=== PATIENT | female | born 1985 | race Caucasian/White ===

== ENCOUNTER → 2018-07-20 13:00 | Emergency (ER) | payer OTHER ==
[~2018-07-20 13:00] MED LIST: Iohexol 300* (CONTRAST) 10 ML SDV IV ONE
--- NOTE | 2018-07-20 13:38 | ED ---
Abdominal Pain/Female - HPI Summary HPI Summary: Patient is a 33 y/o F presenting to ED with complaints of periumbilical abdominal pain onsetting two days ago. She states that pain has been constant, notes that she has Hx of gallstones over eight years ago. Gallbladder is still present. She states that the present pain is similar to her previous gallstones but less intense. Pain is described as cramping. She denies N/V and constipation but notes an episode of diarrhea yesterday. LNMP was last week. No PMHx otherwise reported. PSHx of elbow surgery. FMHx of HTN, diabetes is denied. She denies smoking cigarettes, alcohol and substance usage. In room, pain is rated 7/10, she states that she does not need medications for pain. Nothing is noted to aggravate/alleviate Sx. Home medications and allergies are reviewed. - History of Current Complaint Chief Complaint: EDAbdPain Stated Complaint: ABD PAIN COMING FROM OFFICE Time Seen by Provider: 07/20/18 13:18 Hx Obtained From: Patient Onset/Duration: Lasting Days - onset two days ago, Still Present Timing: Days - onset two days ago Severity Currently: Severe - 7/10 Pain Intensity: 7 Pain Scale Used: 0-10 Numeric - 7/10 Location: Umbilical Character: Cramping Aggravating Factor(s): Nothing Alleviating Factor(s): Nothing Associated Signs and Symptoms: Positive: Diarrhea. Negative: Fever - on vitals , temp is 98.2 F, Constipation, Nausea, Vomiting Allergies/Adverse Reactions: Allergies Allergy/AdvReac Type Severity Reaction Status Date / Time No Known Allergies Allergy Verified 07/20/18 13:06 Home Medications: Home Medications Fexofenadine/Pseudoephedrine [Laila-D 24 Hour Tablet] 1 each PO DAILY [History Confirmed 07/20/18] Norgestimate-Ethinyl Estradiol [Sprintec 28 0.25-35 mg-Mcg] 1 tab PO DAILY 07/20 [History Confirmed 07/20/18] PMH/Surg Hx/FS Hx/Imm Hx GI History: Reports: Hx Gall Bladder Disease - gallstones Sensory History: Denies: Hx Legally Blind, Hx Deafness Opthamlomology History: Denies: Hx Legally Blind EENT History: Denies: Hx Deafness Infectious Disease History: No Infectious Disease History: Denies: Traveled Outside the [place] in Last 30 Days - Family History Known Family History: Negative: Hypertension, Diabetes - Social History Alcohol Use: None Substance Use Type: Reports: None Smoking Status (MU): Never Smoked Tobacco Review of Systems Negative: Fever - on vitals, temp is 98.2 F Gastrointestinal: Other - NEGATIVE - CONSTIPATION Positive: Abdominal Pain, Diarrhea. Negative: Vomiting, Nausea All Other Systems Reviewed And Are Negative: Yes Physical Exam - Summary Physical Exam Summary: VITAL SIGNS: Reviewed. GENERAL: Patient is a well-developed and nourished female who is lying comfortable in the stretcher. Patient is not in any acute respiratory distress. HEAD AND FACE: No signs of trauma. No ecchymosis, hematomas or skull depressions. No sinus tenderness. EYES: PERRLA, EOMI x 2, No injected conjunctiva, no nystagmus. EARS: Hearing grossly intact. Ear canals and tympanic membranes are within normal limits. MOUTH: Oropharynx within normal limits. NECK: Supple, trachea is midline, no adenopathy, no JVD, no carotid bruit, no c- spine tenderness, neck with full ROM. CHEST: Symmetric, no tenderness at palpation LUNGS: Clear to auscultation bilaterally. No wheezing or crackles. CVS: Regular rate and rhythm, S1 and S2 present, no murmurs or gallops appreciated. ABDOMEN: Soft, RUQ tenderness. No signs of distention. No rebound no guarding, and no masses palpated. Bowel sounds are normal. EXTREMITIES: FROM in all major joints, no edema, no cyanosis or clubbing. NEURO: Alert and oriented x 3. No acute neurological deficits. Speech is normal and follows commands. SKIN: Dry and warm Triage Information Reviewed: Yes Vital Signs On Initial Exam: Initial Vitals Temp Pulse Resp BP Pulse Ox 98.2 F 55 15 144/97 100 07/20/18 13:05 07/20/18 13:05 07/20/18 13:05 07/20/18 13:05 07/20/18 13:05 Vital Signs Reviewed: Yes Diagnostics - Vital Signs Vital Signs Temp Pulse Resp BP Pulse Ox 07/20/18 13:05 98.2 F 55 15 144/97 100 - Laboratory Result Diagrams: 07/20/18 14:13 07/20/18 14:13 Lab Statement: Any lab studies that have been ordered have been reviewed, and results considered in the medical decision making process. - CT ABD/PEL CT CT Interpretation Completed By: Radiologist Summary of CT Findings: IMPRESSION: 1. HEPATOMEGALY WITH FATTY INFILTRATION OF THE LIVER. 2. SMALL AMOUNT OF FLUID WITHIN THE PELVIC CUL-DE-SAC. THIS MAY BE PHYSIOLOGIC WITHIN A REPRODUCTIVE AGE FEMALE. THIS REPORT WAS REVIEWED BY DR. UNDERWOOD. - Ultrasound No standard instances Ultrasound Interpretation Completed By: Radiologist Summary of Ultrasound Findings: GALLBLADDER US IMPRESSION: #. Negative RIGHT upper quadrant ultrasound. THIS REPORT WAS REVIEWED BY DR. UNDERWOOD. Re-Evaluation - Re-Evaluation Second Eval Re-Evaluation Time: 16:52 Comment: In the ED course the patient still declines any pain medications. At this point since the test results, ultrasound of right upper quadrant abdominopelvic CT shows no acute pathology the patient will be discharged home with follow-up with primary care physician. She will be recommended to take ibuprofen or Tylenol for pain and if the symptoms worsen the patient should return to the emergency room for further workup and management. I discussed all the findings and test results with the patient. Patient was instructed to return to the emergency room immediately if any of the symptoms return worsens. Plan of care was discussed with the patient and understands and agrees. All questions were answered at patient satisfaction. There were no further complaints or concerns. Lung exam before discharge: CTA B/L. Good air exchange. No wheezing or crackles heard. CVS: S1 and S2 present. No murmurs appreciated. Patient is alert and oriented x 3. Patient is hemodynamically stable. Patient will be discharged home with follow up PCP in the next 2-3 days First Eval Re-Evaluation Time: 14:59 Comment: US gallbladder was negative. However, the patient still reports pain, CT ABD/PEL to be done. Abdominal Pain Fem Course/Dx - Course Course Of Treatment: This patient is a 33-year-old female who presents to the emergency department with a chief complaint of having umbilical pain. Blood work without any significant abnormality. Beta hCG is < 0.60. Right upper quadrant ultrasound impression: negative right upper quadrant ultrasound. Patient continues to have slight pain therefore I decided to abdominopelvic CT. Abdomen and pelvic CT impression: 1. HEPATOMEGALY WITH FATTY INFILTRATION OF THE LIVER. 2. SMALL AMOUNT OF FLUID WITHIN THE PELVIC CUL-DE-SAC. THIS MAY BE PHYSIOLOGIC WITHIN A. REPRODUCTIVE AGE FEMALE. In the ED course the patient still declines any pain medications. At this point since the test results, ultrasound of right upper quadrant abdominopelvic CT shows no acute pathology the patient will be discharged home with follow-up with primary care physician. She will be recommended to take ibuprofen or Tylenol for pain and if the symptoms worsen the patient should return to the emergency room for further workup and management. . I discussed all the findings and test results with the patient. Patient was instructed to return to the emergency room immediately if any of the symptoms return worsens. Plan of care was discussed with the patient and understands and agrees. All questions were answered at patient satisfaction. There were no further complaints or concerns. Lung exam before discharge: CTA B/L. Good air exchange. No wheezing or crackles heard. CVS: S1 and S2 present. No murmurs appreciated. Patient is alert and oriented x 3. Patient is hemodynamically stable. Patient will be discharged home with follow up PCP in the next 2-3 days - Diagnoses Provider Diagnoses: Periumbilical abdominal pain Discharge - Sign-Out/Discharge Documenting (check all that apply): Patient Departure - DISCHARGE Patient Received Moderate/Deep Sedation with Procedure: No - Discharge Plan Condition: Stable Disposition: HOME Patient Education Materials: Abdominal Pain (ED) Referrals: [facility] [Outside] - 3 Days Additional Instructions: RETURN TO ED FOR ANY NEW OR WORSENING SYMPTOMS. FOLLOW UP WITH YOUR PRIMARY CARE PHYSICIAN WITHIN THREE DAYS - Billing Disposition and Condition Condition: STABLE Disposition: Home - Attestation Statements Document Initiated by Radha: Yes Documenting Scribe: ANGEL BARNHART Provider For Whom Radha is Documenting (Include Credential): RICHIE UNDERWOOD MD Scribe Attestation: ANGEL Hoover, scribed for RICHIE UNDERWOOD MD on 07/20/18 at 2112. Scribe Documentation Reviewed: Yes Provider Attestation: The documentation as recorded by the ANGEL sorenson accurately reflects the service I personally performed and the decisions made by me, RICHIE UNDERWOOD MD Status of Scribe Document: Viewed
[2018-07-20 14:23] LABS: ABS Basophils 0 10^3/ul (0-0.2); ABS Eosinophils 0 10^3/ul (0-0.6); ABS Lymphocytes 1.7 10^3/ul (1.0-4.8); ABS Monocytes 0.3 10^3/ul (0-0.8); ABS Neutrophils 4.8 10^3/ul (1.5-7.7); ABS Nucleated RBC 0 10^3/ul; Eosinophil % 0.5 %; Hematocrit 42 % (33-41); Hemoglobin 13.8 g/dL (12.0-16.0); Lymphocyte % 25.1 %; Mean Corpuscular HGB Conc 33 g/dL (31-36); Mean Corpuscular Hemoglobin 29 pg (27-31); Mean Corpuscular Volume 88 fL (80-97); Mean Platelet Volume 9.4 fL (7.4-10.4); Nucleated Red Blood Cells % 0.1; Platelet Count 169 10^3/uL (150-450); Red Blood Count 4.73 10^6 /uL (3.70-4.87); Red Cell Distribution Width 13 % (10.5-15); White Blood Count 6.9 10^3/uL (3.5-10.8)
[2018-07-20 14:41] LABS: ALT 12 U/L (7-52); AST 14 U/L (13-39); Albumin 4.5 g/dL (3.2-5.2); Albumin/Globulin Ratio 1.6 (1-3); Alkaline Phosphatase 33 U/L (34-104); Anion Gap 6 mmol/L (2-11); BUN/Creatinine Ratio 8.5 (8-20); Blood Urea Nitrogen 7 mg/dL (6-24); C Reactive Protein < 1.00 mg/L (<8.01); CO2 Carbon Dioxide 24 mmol/L (22-32); Calcium 9.4 mg/dL (8.6-10.3); Chloride 105 mmol/L (101-111); Creatine Kinase 60 U/L (10-223); EGFR African American 98.4 (>60); EGFR Non-African American 81.3 (>60); Globulin 2.8 g/dL (2-4); Glucose 97 mg/dL (70-100); Sodium 135 mmol/L (135-145); Total Protein 7.3 g/dL (6.4-8.9)
[2018-07-20 14:47] LABS: HCG Pregnancy < 0.60 mIU/mL
[2018-07-20 17:47] VITALS: BP 132/88
== END | disposition home or self-care (01) ==
LOC: ED 13:00
DX: R10.33 Periumbilical pain (principal); K76.0 Fatty (change of) liver, not elsewhere classified; K80.80 Other cholelithiasis without obstruction
CPT/HCPCS: 36415; 74177; 76705; 80053; 82550; 83605; 83690; 84702; 85025; 86140; 99282; Q9967